=== PATIENT | male | born 1955 | race Caucasian/White ===

== ENCOUNTER 2024-06-24 11:33 | Observation (INO) ==
[2024-06-24 14:46] LABS: ABS Eosinophils 0.2 10^3/uL (0.0-0.5); ABS Lymphocytes 1.3 10^3/uL (1.0-4.8); ABS Monocytes 0.6 10^3/uL (0.0-1.1); ABS Neutrophils 3.6 10^3/uL (1.5-7.6); Eosinophil % 2.8 %; Hemoglobin 13.1 g/dL (13.2-16.3); Lymphocyte % 22.5 %; Mean Corpuscular Hemoglobin 35.1 pg (27-33); Mean Corpuscular Hgb Conc 34.5 g/dL (31-36); Mean Corpuscular Volume 101.8 fL (80-97); Mean Platelet Volume 7.7 fL (7.5-11.2); Platelet Count 154 10^3/uL (150-450); Red Blood Count 3.74 10^6/uL (4.06-5.63); Red Cell Distribution Width 14.2 % (12-17); White Blood Count 5.8 10^3/uL (3.6-10.2)
[2024-06-24 15:14] LABS: Albumin 3.6 g/dL (3.2-5.2); Albumin/Globulin Ratio 1.6 (1-3); Calcium 9.1 mg/dL (8.6-10.3); Creatinine, Serum 0.45 mg/dL (0.67-1.17); Globulin 2.2 g/dL (2-4); Magnesium 1.7 mg/dL (1.9-2.7); Potassium 3.9 mmol/L (3.5-5.0); Total Bilirubin 0.6 mg/dL (0.2-1.0); Total Protein 5.8 g/dL (6.4-8.9); eGFR CKD-EPI 115.4 (>60)
[2024-06-24 15:26] LABS: C Reactive Protein 2.99 mg/L (<8.01)
[2024-06-24] MEDS: Iohexol 300 (CONTRAST) 10 ML SDV IV ONE (16:11)
[2024-06-24] MEDS: NS 0.9% 1000 ml BAG 1,000 ML IV ONE (19:14)
[2024-06-24] MEDS ORDERED: Ondansetron 4 mg VIAL 2 MG/ML 2 ml VIAL IV PRN (20:05)
[2024-06-24] MEDS: Magnesium Sulfate 2 gm BAG 2 GM/50 ML BAG IVPB ONE (20:47)
[2024-06-24 20:53] LABS: Urine Appearance Clear; Urine Bilirubin Negative (Negative); Urine Blood Negative (Negative); Urine Color Colorless; Urine Glucose Negative (Negative); Urine Ketones Negative (Negative); Urine Nitrite Negative (Negative); Urine Protein Negative (Negative); Urine Specific Gravity 1.017 (1.002-1.030); Urine Urobilinogen Negative (Negative)
[2024-06-24 21:39] LABS: TSH Ultra Thyroid Stim Horm 1.03 mcIU/mL (0.34-5.60)
[2024-06-24 21:51] LABS: Folate 7.21 ng/mL (5.90-24.80)
[2024-06-24] MEDS: Lactated Ringers 1000 ml BAG 1,000 ML IV SCH (22:05)
[2024-06-24 22:07] LABS: Hematocrit 35.3 % (38-53); Hemoglobin 12.4 g/dL (13.2-16.3)
[2024-06-24] MEDS: PEG 3000 GI LAVAGE 1 GALLON PO ONE (23:17)
[2024-06-25 06:54] LABS: ABS Eosinophils 0.2 10^3/uL (0.0-0.5); ABS Lymphocytes 1.2 10^3/uL (1.0-4.8); ABS Monocytes 0.8 10^3/uL (0.0-1.1); ABS Neutrophils 4.3 10^3/uL (1.5-7.6); ABS Nucleated RBC 0.01 10^3/ul; Eosinophil % 2.7 %; Hematocrit 36.4 % (38-53); Hemoglobin 12.6 g/dL (13.2-16.3); Lymphocyte % 18.5 %; Mean Corpuscular Hemoglobin 35.2 pg (27-33); Mean Corpuscular Hgb Conc 34.7 g/dL (31-36); Mean Corpuscular Volume 101.2 fL (80-97); Nucleated Red Blood Cells % 0.1 %/100WBC (0.0-0.8); Platelet Count 152 10^3/uL (150-450); Red Cell Distribution Width 13.6 % (12-17); White Blood Count 6.4 10^3/uL (3.6-10.2)
[2024-06-25 07:14] LABS: Calcium 8.4 mg/dL (8.6-10.3); Creatinine, Serum 0.4 mg/dL (0.67-1.17); Magnesium 1.6 mg/dL (1.9-2.7); Potassium 3.2 mmol/L (3.5-5.0); eGFR CKD-EPI 119.6 (>60)
[2024-06-25] MEDS: Multivitamins/Minerals TAB PO SCH (08:34)
[2024-06-25] MEDS: Magnesium Sulf 4 GM/100 ML IV 4,000 MG/100 ML BAG IVPB ONE (08:41)
[2024-06-25] MEDS: Nicotine PATCH 14 MG/24 HR PATCH TRANSDERM SCH (08:50)
[2024-06-25] MEDS: PEG 3000 GI LAVAGE 1 GALLON PO ONE (10:00)
[2024-06-25] MEDS ORDERED: Lidocaine 2% PF 5 ML VIAL ONE (12:27)
[2024-06-25] MEDS: KCL 20 MEQ/100 ML IVPREMIX 20 MEQ/100 ML BAG IV SCH (12:30)
[2024-06-25] MEDS ORDERED: Propofol 10 MG/ML 20 ML BTL ONE (13:20)
[2024-06-25 17:39] LABS: Carcinoembryonic Antigen 120.2 ng/mL (0.1-5.0)
[2024-06-26 08:23] LABS: Hemoglobin 12.7 g/dL (13.2-16.3); Mean Corpuscular Hemoglobin 35.3 pg (27-33); Mean Corpuscular Hgb Conc 34.5 g/dL (31-36); Mean Corpuscular Volume 102.4 fL (80-97); Mean Platelet Volume 7.8 fL (7.5-11.2); Platelet Count 155 10^3/uL (150-450); Red Blood Count 3.61 10^6/uL (4.06-5.63); White Blood Count 7.3 10^3/uL (3.6-10.2)
[2024-06-26] MEDS: Lactated Ringers 1000 ml BAG 1,000 ML IV SCH (08:54)
[2024-06-26 09:10] LABS: Calcium 8.7 mg/dL (8.6-10.3); Creatinine, Serum 0.43 mg/dL (0.67-1.17); Magnesium 1.7 mg/dL (1.9-2.7); Potassium 3.6 mmol/L (3.5-5.0)
[2024-06-26] MEDS: KCL 20 MEQ/100 ML IVPREMIX 20 MEQ/100 ML BAG IV SCH (10:27)
[2024-06-26] MEDS: Magnesium Sulf 4 GM/100 ML IV 4,000 MG/100 ML BAG IVPB ONE (12:57)
[2024-06-26] MEDS ORDERED: Acetaminophen IV 1 GM/100ML 1,000 MG/100 ML BAG IV ONE (13:39)
[2024-06-26 17:21] VITALS: BP 111/81
[2024-06-26] MEDS: Acetaminophen IV 1 GM/100ML 1,000 MG/100 ML BAG IV ONE (17:51)
== END 2024-06-26 18:15 | disposition home or self-care (01) ==
LOC: ED 11:33 → EDHOLD 11:33 → SUATTDRO 18:47 → MED 20:58
PROVIDERS: ADMIT Internal Medicine; ATTEND Hospitalist